=== PATIENT | female | born 1995 | race Caucasian/White ===

== ENCOUNTER 2017-09-08 11:48 | Emergency (ER) | payer OTHER ==
[~2017-09-08] VITALS: Ht 165.1 cm; Wt 45.5 kg
[~2017-09-08 11:48] MED LIST: FOCALIN XR20 MG PO
[2017-09-08 12:22] LABS: HEMATOCRIT 40.9 % (36.0-46.0); HEMOGLOBIN 13.9 G/DL (11.9-15.5); MCH 27.1 PG (29.0-34.0); MCV 79.7 FL (83-99); PLATELET COUNT 109 K/uL (156-360); RBC DIS.WIDTH-SD 37.6 % (39-53); RED BLOOD COUNT 5.13 M/uL (3.80-5.20)
[2017-09-08 12:33] LABS: ALBUMIN 4.4 g/dL (3.2-4.8); CHLORIDE 99 mEq/L (99-109); POTASSIUM 3.4 mEq/L (3.7-5.4); SODIUM 137 mEq/L (136-147)
[2017-09-08 12:35] LABS: GLUCOSE 122 mg/dL (70-99); TOTAL PROTEIN 7.4 g/dL (6.4-8.3)
[2017-09-08 12:37] LABS: TOTAL BILIRUBIN 1.6 mg/dL (0.0-1.0)
[2017-09-08 12:38] LABS: SERUM ETHYL ALCOHOL < 10 mg/dL
[2017-09-08 12:39] LABS: ALKALINE PHOSPHATASE 93 IU/L (3-129); CREATININE 0.8 mg/dL (0.6-1.3); GFR ESTIMATE (CALCULATED) > 59 mL/min/
[2017-09-08 12:40] LABS: AST (GOT) 56 IU/L (2-34); UREA NITROGEN (BUN) 15 mg/dL (9-23)
[2017-09-08 12:41] LABS: DIRECT BILIRUBIN 0.8 mg/dL (0.0-0.3)
[2017-09-08 12:42] LABS: ALT (GPT) 56 IU/L (3-49)
[2017-09-08 12:48] LABS: QUANTITATIVE HCG < 4.0 MIU/ML
[2017-09-08 12:56] LABS: BASOPHIL (%) 0.3 % (0-1); EOSINOPHIL (%) 0.3 % (0-5); IMMATURE GRANULOCYTE (%) 0.3 % (0.0-0.7); LYMPHOCYTE (%) 6.2 % (15-42); LYMPHOCYTE COUNT 0.5 K/uL (1.0-2.8); MONOCYTE (%) 1.8 % (3-12); MONOCYTE COUNT 0.1 K/uL (0-0.8); NEUTROPHIL (%) 91.1 % (45-76); NEUTROPHIL COUNT 7.3 K/uL (1.8-6.4)
[2017-09-08] MEDS ORDERED: ZOFRAN4 MG PO (14:49)
[2017-09-08 17:58] VITALS: BP 115/81
== END 2017-09-08 18:00 | disposition home or self-care (01) ==
LOC: EME 11:48
PROVIDERS: Emergency Medicine
DX: F11.10 Opioid abuse, uncomplicated (principal); R11.2 Nausea with vomiting, unspecified; F12.90 Cannabis use, unspecified, uncomplicated; F90.9 Attention-deficit hyperactivity disorder, unspecified type; Z91.040 Latex allergy status; F17.200 Nicotine dependence, unspecified, uncomplicated
CPT/HCPCS: 71045; 80048; 80076; 81003; 84702; 85025; G0480; J2060; J2405; J7030